=== PATIENT | male | born 1965 | race Caucasian/White ===

== ENCOUNTER → 2016-08-09 | Outpatient (CLI) | payer OTHER ==
[2016-08-09 11:31] LABS: ALT 30 U/L (21-72); AST 43 U/L (17-59); Alkaline Phosphatase 117 U/L (38-126); Anion Gap 11 mmol/L; Basophils # (A) 0.1 k/uL (0-0.2); Basophils % (A) 1 %; Blood Urea Nitrogen 13 mg/dL (9-20); CHCM 33.5; Calcium 9.6 mg/dL (8.4-10.2); Carbon Dioxide 25 mmol/L (22-30); Chloride 102 mmol/L (98-107); Eosinophils # (A) 0.3 k/uL (0-0.7); Eosinophils % (A) 4 %; Glucose 95 mg/dL (74-99); HCT 49.3 % (39.0-53.0); HDW 2.34; HGB 16.4 gm/dL (13.0-17.5); Luc # (Auto) 0.19; Luc % (Auto) 3; Lymphocytes # (A) 3.7 k/uL (1.0-4.8); Lymphocytes % (A) 54 %; MCH 33.9 pg (25.0-35.0); MCHC 33.3 g/dL (31.0-37.0); MCV 101.8 fL (80.0-100.0); Monocytes # (A) 0.5 k/uL (0-1.0); Monocytes % (A) 8 %; Neutrophils % (A) 30 %; Non-African American GFR(MDRD) >60 (>60 ml/min/1.73 sqM); Potassium 5.1 mmol/L (3.5-5.1); RBC 4.84 m/uL (4.30-5.90); RDW 12.6 % (11.5-15.5); Sodium 138 mmol/L (137-145); Total Bilirubin 0.7 mg/dL (0.2-1.3); Total Protein 7.6 g/dL (6.3-8.2); WBC 6.8 k/uL (3.8-10.6); WBC (Perox) 6.47
[2016-08-09 13:08] LABS: Manual Review Performed
[2016-08-11 08:49] LABS: Mis test requested (Blood) HIV-1 RNA Ultraquant
== END | disposition home or self-care (01) ==
LOC: LABWHC1 10:31
PROVIDERS: ATTEND Internal Medicine Infectious Disease
DX: B20 Human immunodeficiency virus [HIV] disease (principal)
CPT/HCPCS: 36415; 80053; 85025; 86360; 87536

== ENCOUNTER → 2017-01-03 | Outpatient (CLI) | payer OTHER ==
[2017-01-03 12:43] LABS: ALT 33 U/L (21-72); AST 31 U/L (17-59); Alkaline Phosphatase 94 U/L (38-126); Anion Gap 8 mmol/L; Blood Urea Nitrogen 12 mg/dL (9-20); Calcium 9.6 mg/dL (8.4-10.2); Carbon Dioxide 27 mmol/L (22-30); Chloride 103 mmol/L (98-107); Glucose 96 mg/dL (74-99); Non-African American GFR(MDRD) 58 (>60 ml/min/1.73 sqM); Potassium 4.7 mmol/L (3.5-5.1); Sodium 138 mmol/L (137-145); Total Bilirubin 0.6 mg/dL (0.2-1.3); Total Protein 7.2 g/dL (6.3-8.2)
[2017-01-03 13:12] LABS: CH 33.8; CHCM 33.5; HCT 50.7 % (39.0-53.0); HDW 2.25; HGB 17.3 gm/dL (13.0-17.5); MCH 34.5 pg (25.0-35.0); MCHC 34.1 g/dL (31.0-37.0); MCV 101.3 fL (80.0-100.0); Mean Platelet Volume 7.1; RDW 12.6 % (11.5-15.5); WBC 6.2 k/uL (3.8-10.6); WBC (Perox) 6.06
[2017-01-03 15:05] LABS: Add Differential Manual Differential
[2017-01-03 15:11] LABS: Nucleated Red Blood Cells 0 /100 WBC (0-0); Total Cells Counted 100
[2017-01-03 15:14] LABS: Manual Review Performed; RBC Morphology Normal
[2017-01-04 13:01] LABS: LOG HIV Copies/mL <1.60 (<1.60)
== END | disposition home or self-care (01) ==
LOC: LABWHC1 11:52
PROVIDERS: ATTEND Internal Medicine Infectious Disease
DX: B20 Human immunodeficiency virus [HIV] disease (principal)
CPT/HCPCS: 36415; 80053; 85025; 86360; 87536

== ENCOUNTER → 2017-12-03 | Outpatient (CLI) | payer OTHER ==
[2017-12-03 09:43] LABS: Basophils # (A) 0.1 k/uL (0-0.2); Basophils % (A) 1 %; Eosinophils # (A) 0.2 k/uL (0-0.7); Eosinophils % (A) 3 %; HCT 48.9 % (39.0-53.0); HGB 16.2 gm/dL (13.0-17.5); Lymphocytes # (A) 3.6 k/uL (1.0-4.8); Lymphocytes % (A) 51 %; MCH 33.3 pg (25.0-35.0); MCHC 33.1 g/dL (31.0-37.0); MCV 100.6 fL (80.0-100.0); Mean Platelet Volume 6.7; Monocytes # (A) 0.4 k/uL (0-1.0); Monocytes % (A) 6 %; Neutrophils # (A) 2.5 k/uL (1.3-7.7); Neutrophils % (A) 36 %; Platelet Count 301 k/uL (150-450); RBC 4.86 m/uL (4.30-5.90); RDW 13.5 % (11.5-15.5)
[2017-12-03 09:48] LABS: Albumin 4.3 g/dL (3.5-5.0); Total Bilirubin 0.5 mg/dL (0.2-1.3); Total Protein 7.1 g/dL (6.3-8.2)
[2017-12-03 10:20] LABS: Polychromasia Present
[2017-12-05 12:57] LABS: T4/T8 Ratio (CD4:CD8) 0.7 (1.0-3.7)
== END | disposition home or self-care (01) ==
LOC: LABWHC1 09:10
PROVIDERS: ATTEND Internal Medicine Infectious Disease
DX: B20 Human immunodeficiency virus [HIV] disease (principal)
CPT/HCPCS: 36415; 80053; 85025; 86360; 87536

== ENCOUNTER → 2019-03-02 | Outpatient (CLI) | payer OTHER ==
[2019-03-02 15:25] LABS: Basophils # (A) 0.1 k/uL (0-0.2); Basophils % (A) 1 %; Eosinophils # (A) 0.3 k/uL (0-0.7); Eosinophils % (A) 4 %; HGB 15.6 gm/dL (13.0-17.5); Lymphocytes # (A) 3.8 k/uL (1.0-4.8); Lymphocytes % (A) 54 %; MCH 34.1 pg (25.0-35.0); MCHC 33.2 g/dL (31.0-37.0); MCV 102.6 fL (80.0-100.0); Macrocytosis Slight; Mean Platelet Volume 5.9; Monocytes # (A) 0.4 k/uL (0-1.0); Monocytes % (A) 6 %; Neutrophils # (A) 2.3 k/uL (1.3-7.7); Neutrophils % (A) 32 %; Platelet Count 294 k/uL (150-450); RBC 4.58 m/uL (4.30-5.90); RDW 12.3 % (11.5-15.5); WBC 7.1 k/uL (3.8-10.6)
[2019-03-02 18:30] LABS: African American GFR (CKD) 71.2 (60.0-200.0); Albumin 4.6 g/dL (3.80-4.90); Anion Gap 4.9 mmol/L (4.00-12.00); BUN/Creat Ratio 10.77 Ratio (12.00-20.00); Calcium 9.6 mg/dL (8.7-10.3); Carbon Dioxide 28.1 mmol/L (21.6-31.8); Globulin 2.3 g/dL (1.6-3.3); Potassium 4.6 mmol/L (3.5-5.5); Total Bilirubin 0.4 mg/dL (0.2-1.2); Total Protein 6.9 g/dL (6.2-8.2)
== END | disposition home or self-care (01) ==
LOC: LABWHC1 14:37
PROVIDERS: ATTEND Internal Medicine Infectious Disease
DX: B20 Human immunodeficiency virus [HIV] disease (principal)
CPT/HCPCS: 36415; 80053; 85025; 86360; 87536

== ENCOUNTER 2019-12-18 08:58 | Day surgery (SDC) | payer OTHER ==
[2019-12-14 15:38] VITALS: BMI 25.8
[~2019-12-18 08:58] MED LIST: LACTATED RINGERS 1,000 ML IV SCH
[2019-12-18] MEDS ORDERED: LIDOCAINE 1% (10MG/ML) FOR IV START INTRADERMA ONE (09:55)
[2019-12-18 10:06] VITALS: RESP 16; TEMP 98.1
[2019-12-18] MEDS ORDERED: PROPOFOL 10 MG/ML 20 ML VIAL IV ONE (10:38)
[2019-12-18] MEDS ORDERED: LIDOCAINE 1% INJ 10MG/ML (20 ML MDV) ONE (10:38)
--- NOTE | 2019-12-18 10:49 | P.GSHP ---
History of Present Illness H&P Date: 12/18/19 Chief Complaint: Colon cancer screening Patient here today for colonoscopy. Has not had one previously. No bowel complaints. No family history of colon cancer. Past Medical History Past Medical History: Cancer, Chest Pain / Angina, Hypertension Additional Past Medical History / Comment(s): HIV positive, hx melanoma History of Any Multi-Drug Resistant Organisms: None Reported Past Surgical History: Hernia Repair Additional Past Surgical History / Comment(s): melanoma removed from back, Past Anesthesia/Blood Transfusion Reactions: Motion Sickness Smoking Status: Current every day smoker - Past Family History Mother Family Medical History: No Reported History Medications and Allergies Home Medications Medication Instructions Recorded Confirmed Type Amitriptyline HCl [Elavil] 50 mg PO HS 12/14/19 12/18/19 History Elviteg/Cob/Emtri/Tenof Alafen 1 each PO QAM 12/14/19 12/18/19 History [Genvoya Tablet] amLODIPine [Norvasc] 10 mg PO DAILY 12/14/19 12/18/19 History Allergies Allergy/AdvReac Type Severity Reaction Status Date / Time No Known Allergies Allergy Verified 12/18/19 09:40 Surgical - Exam Vital Signs Temp Pulse Resp BP Pulse Ox 98.1 F 59 L 16 143/85 99 12/18/19 09:52 12/18/19 09:52 12/18/19 09:52 12/18/19 09:52 12/18/19 09:52 Physical exam: General: Well-developed, well-nourished HEENT: Normocephalic, sclerae nonicteric Abdomen: Nontender, nondistended Extremities: No edema Neuro: Alert and oriented Assessment and Plan (1) Colon cancer screening Narrative/Plan: Will proceed with colonoscopy at this time. Current Visit: Yes Status: Acute Code(s): Z12.11 - ENCOUNTER FOR SCREENING FOR MALIGNANT NEOPLASM OF COLON SNOMED Code(s): 503436792
--- NOTE | 2019-12-18 11:00 | P.PCN ---
Date of Procedure: 12/18/19 Procedure(s) Performed: PREOPERATIVE DIAGNOSIS: Colon cancer screening POSTOPERATIVE DIAGNOSIS: Diverticulosis PROCEDURE: Colonoscopy ANESTHESIA: MAC SURGEON: Amandeep Pierce M.D. SPECIMENS: None ENDOSCOPIC PROCEDURE: The patient was placed on the endoscopy table in the left decubitus position. The Olympus colonoscope was inserted into the anus and passed under direct visualization to the base of the cecum. The appendiceal orifice was visualized. From that point the scope was slowly withdrawn inspe cting all surfaces carefully. There were no neoplastic inflammatory or polypoid lesions throughout the cecum, ascending, transverse, descending, sigmoid and rectum. There was mild sigmoid diverticulosis noted. Digital rectal examination was normal. The patient was taken to the recovery room in stable condition per anesthesia guidelines. RECOMMENDATIONS: Resume diet. Follow-up colonoscopy in 10 years.
[2019-12-18 11:19] VITALS: BP 102/60; PULSE 53
== END 2019-12-18 11:38 | disposition home or self-care (01) ==
LOC: ORWHC2ENDO 08:58
PROVIDERS: ATTEND Surgery
DX: Z12.11 Encounter for screening for malignant neoplasm of colon (principal); K57.30 Diverticulosis of large intestine without perforation or abscess without bleeding; I10 Essential (primary) hypertension; E11.9 Type 2 diabetes mellitus without complications; F17.210 Nicotine dependence, cigarettes, uncomplicated; Z85.820 Personal history of malignant melanoma of skin; Z21 Asymptomatic human immunodeficiency virus [HIV] infection status; Z87.19 Personal history of other diseases of the digestive system; Z98.890 Other specified postprocedural states; Z87.898 Personal history of other specified conditions; Z79.899 Other long term (current) drug therapy; Z79.84 Long term (current) use of oral hypoglycemic drugs; Z97.2 Presence of dental prosthetic device (complete) (partial)
CPT/HCPCS: J2001; J2704; G0121

== ENCOUNTER → 2021-01-26 | Outpatient (CLI) | payer OTHER ==
[2021-01-26 15:14] LABS: Basophils # (A) 0.04 X 10*3/uL (0.00-0.10); Basophils % (A) 0.6 %; Eosinophils # (A) 0.13 X 10*3/uL (0.04-0.35); Eosinophils % (A) 1.8 %; HCT 46.8 % (39.6-50.0); HGB 15.9 g/dL (13.0-17.0); Lymphocytes # (A) 3.26 X 10*3/uL (0.90-5.00); Lymphocytes % (A) 46.2 %; MCH 34.1 pg (27.0-32.0); MCV 100.4 fL (80.0-97.0); Mean Platelet Volume 10.1 fL (9.5-12.2); Monocytes # (A) 0.58 X 10*3/uL (0.20-1.00); Monocytes % (A) 8.2 %; Neutrophils # (A) 3.03 X 10*3/uL (1.80-7.70); Neutrophils % (A) 42.9 %; Platelet Count 304 X 10*3/uL (140-440); RBC 4.66 X 10*6/uL (4.40-5.60); RDW 12.7 % (11.5-14.5); WBC 7.06 X 10*3/uL (4.50-10.00)
[2021-01-26 17:06] LABS: African American GFR (CKD) 70.2 (60.0-200.0); Albumin 4.5 g/dL (3.80-4.90); Albumin/Globulin Ratio 1.55 (1.60-3.17); Anion Gap 0.7 mmol/L (4.00-12.00); Calcium 9.9 mg/dL (8.7-10.3); Carbon Dioxide 30.3 mmol/L (21.6-31.8); Globulin 2.9 g/dL (1.6-3.3); Non-African American GFR(CKD) 60.6 (60.0-200.0); Potassium 4.9 mmol/L (3.5-5.5); Total Bilirubin 0.6 mg/dL (0.2-1.2); Total Protein 7.4 g/dL (6.2-8.2)
[2021-01-27 12:38] LABS: T4/T8 Ratio (CD4:CD8) 0.9 (1.0-3.7)
[2021-01-28 20:32] LABS: HIV-1 RNA Not detected (Not detected); HIV-1 RNA, Quant <40 Copies/mL (<40)
== END | disposition home or self-care (01) ==
LOC: LABWHC1 10:15
PROVIDERS: ATTEND Internal Medicine Infectious Disease
DX: B20 Human immunodeficiency virus [HIV] disease (principal)
CPT/HCPCS: 36415; 80053; 85025; 86360; 87536

== ENCOUNTER → 2021-07-24 | Outpatient (CLI) | payer OTHER ==
[2021-07-24 18:14] LABS: HCT 47.8 % (39.6-50.0); MCH 33.4 pg (27.0-32.0); MCHC 33.5 g/dL (32.0-37.0); MCV 99.8 fL (80.0-97.0); NRBC Per 100 WBC 0 /100 WBCS (0.0-0.0); Platelet Count 284 X 10*3/uL (140-440); RBC 4.79 X 10*6/uL (4.40-5.60); RDW 12.5 % (11.5-14.5); WBC 5.92 X 10*3/uL (4.50-10.00)
[2021-07-24 18:23] LABS: African American GFR (CKD) 74.3 (60.0-200.0); Albumin 4.5 g/dL (3.8-4.9); Albumin/Globulin Ratio 1.52 (1.60-3.17); Anion Gap 9.7 mmol/L (10.00-18.00); BUN/Creat Ratio 6.77 Ratio (12.00-20.00); Blood Urea Nitrogen 8.4 mg/dL (9.0-27.0); Calcium 10.1 mg/dL (8.7-10.3); Carbon Dioxide 25.4 mmol/L (20.0-27.5); Non-African American GFR(CKD) 64.1 (60.0-200.0); Potassium 4.8 mmol/L (3.5-5.5); Total Bilirubin 0.4 mg/dL (0.30-1.20); Total Protein 7.5 g/dL (6.2-8.2)
[2021-07-25 13:46] LABS: T4/T8 Ratio (CD4:CD8) 0.9 (1.0-3.7)
[2021-07-27 11:49] LABS: HIV-1 RNA Not detected (Not detected); HIV-1 RNA, Quant <40 Copies/mL (<40); LOG HIV Copies/mL <1.60 (<1.60)
== END | disposition home or self-care (01) ==
LOC: LABWHC1 11:50
PROVIDERS: ATTEND Internal Medicine Infectious Disease
DX: B20 Human immunodeficiency virus [HIV] disease (principal)
CPT/HCPCS: 36415; 80053; 85027; 86360; 87536

== ENCOUNTER → 2022-02-17 | Outpatient (CLI) | payer OTHER ==
[2022-02-17 14:31] LABS: Basophils # (A) 0.07 X 10*3/uL (0.00-0.10); Basophils % (A) 1.2 %; Eosinophils # (A) 0.24 X 10*3/uL (0.04-0.35); HCT 44.6 % (39.6-50.0); HGB 15.5 g/dL (13.0-17.0); Immature Grans, Automated 0.3 %; Lymphocytes # (A) 3.09 X 10*3/uL (0.90-5.00); Lymphocytes % (A) 51.4 %; MCH 34.2 pg (27.0-32.0); MCHC 34.8 g/dL (32.0-37.0); MCV 98.5 fL (80.0-97.0); Mean Platelet Volume 9.8 fL (9.5-12.2); Monocytes # (A) 0.57 X 10*3/uL (0.20-1.00); Monocytes % (A) 9.5 %; NRBC Per 100 WBC 0 /100 WBCS (0.0-0.0); Neutrophils # (A) 2.02 X 10*3/uL (1.80-7.70); Neutrophils % (A) 33.6 %; Platelet Count 305 X 10*3/uL (140-440); RBC 4.53 X 10*6/uL (4.40-5.60); RDW 12.4 % (11.5-14.5); WBC 6.01 X 10*3/uL (4.50-10.00)
[2022-02-17 14:46] LABS: Albumin 4.5 g/dL (3.8-4.9); Albumin/Globulin Ratio 1.68 (1.60-3.17); Anion Gap 7.5 mmol/L (10.00-18.00); BUN/Creat Ratio 10.6 Ratio (12.00-20.00); Blood Urea Nitrogen 12.3 mg/dL (9.0-27.0); Calcium 9.6 mg/dL (8.7-10.3); Carbon Dioxide 27.7 mmol/L (20.0-27.5); Globulin 2.7 g/dL (1.6-3.3); Potassium 4.1 mmol/L (3.5-5.5); Total Bilirubin 0.3 mg/dL (0.30-1.20); Total Protein 7.1 g/dL (6.2-8.2)
[2022-02-18 13:42] LABS: T4/T8 Ratio (CD4:CD8) 0.8 (1.0-3.7)
== END | disposition home or self-care (01) ==
LOC: LABWHC1 09:43
PROVIDERS: ATTEND Internal Medicine Infectious Disease
DX: B20 Human immunodeficiency virus [HIV] disease (principal)
CPT/HCPCS: 36415; 80053; 85025; 86360; 87536